=== PATIENT | female | born 1985 | race Caucasian/White ===

== ENCOUNTER → 2018-03-16 | Outpatient (CLI) | payer OTHER ==
--- NOTE | 2018-03-16 12:22 | US ---
EXAMINATION TYPE: US abdomen complete DATE OF EXAM: 03/16/2018 COMPARISON: NONE CLINICAL HISTORY: R10.11,R1031 RT UPPER AND LOWER QUADRANT PAIN. Pt states right side ABD pain EXAM MEASUREMENTS: Liver Length: 12.7 cm Gallbladder Wall: 0.2 cm CBD: 0.6 cm Spleen: 10.1 cm Right Kidney: 9.0 x 4.5 x 4.4 cm Left Kidney: 9.8 x 4.9 x 4.9 cm Pancreas: Body wnl, head and tail obscured by overlying bowel gas Liver: wnl Gallbladder: wnl Evidence for sonographic Amor's sign: No CBD: Upper limits of normal Spleen: wnl Right Kidney: wnl, lower pole gassed out Left Kidney: wnl Upper IVC: wnl Abd Aorta: wnl The visualized liver is homogenous. The intrahepatic portion of the IVC and visualized abdominal aor ta are within normal limits. There is no evidence of cholelithiasis. Common bile duct is unremarkab le. The visualized portions of the pancreas are homogenous. Portions of the head and tail are obscur ed by overlying bowel gas on images saved. The spleen is unremarkable. Kidneys are symmetric and fr ee of hydronephrosis. No renal lesions are seen on images saved. IMPRESSION: No suspicious finding is seen to account for patient's symptoms.
--- NOTE | 2018-03-16 12:51 | US ---
EXAMINATION TYPE: US pelvic complete DATE OF EXAM: 03/16/2018 COMPARISON: US CLINICAL HISTORY: R1011,R1031 RT UPPER AND LOWER QUADRANT PAIN. Pelvic pain, more on right TECHNIQUE: Transabdominal (TA). Transabdominal sonographic images of the pelvis were acquired. Date of LMP: 03/03/2018 EXAM MEASUREMENTS: Uterus: 8.4 x 4.8 x 5.1 cm Endometrial Stripe: 1.1 cm Right Ovary: 3.6 x 2.6 x 3.3 cm Left Ovary: 3.2 x 2.1 x 3.0 cm 1. Uterus: Anteverted wnl 2. Endometrium: wnl 3. Right Ovary: Probable involuting hemorrhagic cyst= 2.3 x 1.7 x 2.4 cm 4. Left Ovary: wnl 5. Bilateral Adnexa: wnl 6. Posterior cul-de-sac: wnl Anteverted uterus is present. There may be oval intramural heterogeneous hyperechoic fibroid posterio rly on initial images of the uterus. No free fluid is seen in pelvic cul-de-sac. Both ovaries are seen. Within right ovary there is 2.3 cm oval hypoechoic lesion could reflect involu ting hemorrhagic cyst. IMPRESSION: Suboptimal study without transvaginal investigation. Suspect involuting 2.3 cm hemorrhagi c cyst right ovary. Possible small intrauterine fibroid.
== END | disposition home or self-care (01) ==
LOC: MERGE 07:40 → RADUSWWP 07:47
PROVIDERS: ATTEND Family Medicine
DX: R10.11 Right upper quadrant pain (principal); R10.13 Epigastric pain
CPT/HCPCS: 76700; 76856

== ENCOUNTER → 2018-06-22 | Outpatient (CLI) | payer OTHER ==
--- NOTE | 2018-06-22 11:11 | CT ---
EXAMINATION TYPE: CT abdomen pelvis wo con DATE OF EXAM: 06/22/2018 COMPARISON: Ultrasound 03/16/2018 HISTORY: 33-year-old female Rt upper quadrant pain, constipation CT DLP: 351.8 mGycm. Automated exposure control for dose reduction was used. TECHNIQUE: Contiguous axial scanning of the abdomen and pelvis without IV contrast. Coronal and sagit kaylee reconstructions performed. FINDINGS: Heart normal size without pericardial effusion. Lung bases clear without pleural effusion. Noncontrast images of the liver, gallbladder, adrenal glands, kidneys, spleen, and pancreas show no g ross abnormal body. No dilated small bowel, free fluid, or free air. Some nonenlarged and borderline sized left upper quadrant mesenteric lymph nodes measuring up to 5 mm are nonspecific. Normal appendix. Mild to moderate stool burden. Oral contrast progressed to the mid transverse colon. No pericolic inf lammatory change. Bladder is urine distended. Uterus and ovaries are visualized. Pelvic phleboliths. No abnormal fluid collection in the pelvis or pelvic lymphadenopathy. Bones: Bilateral L5 hemisacralization. No osseous destructive process. IMPRESSION: 1. Moderate stool burden. 2. Some nonspecific nonenlarged and borderline sized left upper quadrant mesenteric lymph nodes prob ably reactive/post inflammatory. 3. Otherwise, no other acute inflammatory process identified in the abdomen or pelvis by noncontrast CT.
== END ==
LOC: RADCTMAIN 08:14
PROVIDERS: ATTEND Family Medicine
DX: K59.00 Constipation, unspecified (principal); R10.11 Right upper quadrant pain
CPT/HCPCS: 74176